=== PATIENT | female | born 1945 | race Caucasian/White ===

== ENCOUNTER 2018-12-07 15:49 | Inpatient (IN) | payer MEDICAID, OTHER ==
[~2018-12-07] VITALS: Ht 170.2 cm; Wt 103.4 kg
[~2018-12-07 15:49] MED LIST: ALLO100T21 PO; CARV3.12 PO; CYCL-405 PO; ENAL5TAB7 PO; FLUT1DSK2 IH; HYDR-3229 PO; LACT10SO11; MENT1OIN22 TP; NA P135N9 RC; NOVN SUBQ; ORE25 PO; PAX20 PO; PENT400T PO; SLIDE SUBQ; SYN.05 PO; [UNRECOGNIZED DRUG - CODE] PO
--- NOTE | 2018-12-07 15:49 | NUR ---
DONALD CAVAZOS, CURRENTLY AWAITING BED
[2018-12-07 15:56] VITALS: BP 113/75
--- NOTE | 2018-12-07 16:43 | NUR ---
BROUGHT IN BY EMS FROM A MOTEL PT HAD BEEN STAYING THERE WITH A [employer]ING [employer]PPLIES SALES REPRESENTATIVE WHICH >1 WK SURRY WAS CALLED OUT FOR WELLFARE CHECK AND FOUND PT BEDBOUND AND [employer] SALES REPRESENTATIVE PT SOILED IN BED ; DENIES INJURY---ADMITS UNABLE TO CARE FOR SELF
[2018-12-07 17:02] LABS: BASOPHILS # (AUTO) 0.1 K/uL (0.00-0.22); BASOPHILS % (AUTO) 0.4 % (0.0-2.0); EOSINOPHILS # (AUTO) 0.4 K/uL (0-0.4); EOSINOPHILS % (AUTO) 2.8 % (0.0-4.0); HEMOGLOBIN 13.3 g/dL (12.0-16.0); LYMPHOCYTES # (AUTO) 3.6 K/uL (2.5-16.5); LYMPHOCYTES % (AUTO) 23.4 % (20.5-51.1); MEAN CORPUSCULAR HEMOGLOBIN 29 pg (27-31); MEAN CORPUSCULAR HGB CONC 32 g/dL (33-37); MEAN CORPUSCULAR VOLUME 90.6 fL (80-94); MONOCYTES # (AUTO) 0.7 K/uL (0.8-1.0); MONOCYTES % (AUTO) 4.7 % (1.7-9.3); NEUTROPHILS # (AUTO) 10.5 K/uL (1.8-7.7); NEUTROPHILS % (AUTO) 68.7 % (42.2-75.2); PLATELET COUNT (AUTO) 389 K/uL (140-450); RED BLOOD CELL COUNT(AUTO) 4.52 MIL/uL (4.20-5.40); RED CELL DISTRIBUTION WIDTH 13.9 % (11.6-13.7); WHITE BLOOD COUNT (AUTO) 15.3 K/uL (4.8-10.8)
[2018-12-07 17:23] LABS: ALBUMIN 3.2 g/dL (3.4-5.0); ANION GAP 17.9 (8-16); ASPARTATE AMINOTRANSFERASE 15 U/L (15-37); CARBON DIOXIDE 21.3 mmol/L (21-32); CHLORIDE 109 mmol/L (98-107); CREATININE 2.5 mg/dL (0.6-1.3); GLUCOSE 199 mg/dL (74-106); POTASSIUM 5.2 mmol/L (3.5-5.1); SODIUM SERUM 143 mmol/L (136-145); TOTAL BILIRUBIN 0.3 mg/dL (0.0-1.0)
[2018-12-07 17:42] LABS: UREA NITROGEN, BLOOD 93 mg/dL (7-18)
[2018-12-07 18:06] LABS: APPEARANCE,URINE CLOUDY (CLEAR); BILIRUBIN,URINE 1+ (NEGATIVE); BLOOD, URINE 2+ (NEGATIVE); COLOR,URINE YELLOW (YELLOW); LEUKOCYTE ESTERASE ,URINE 2+ (NEGATIVE); NITRITE, URINE NEGATIVE (NEGATIVE); UGLUCOSE NEGATIVE (NEGATIVE)
[2018-12-07 18:30] LABS: RBC,URINE 3-10 (FEW) /HPF (0-5); WBC,URINE TOO MANY TO COUNT /HPF (0-5)
[2018-12-07 18:31] LABS: URINE AMORPHOUS URATE 1+ /HPF (None Seen)
[2018-12-07] MEDS ORDERED: NACL 0.9% 1,000 ML IV ONE (18:40)
--- NOTE | 2018-12-07 18:52 | NUR ---
CONTACT [phone]. CHILD NUMBER TO BE CONTACTED. PER FAMILY MEMBER.
[2018-12-07] MEDS ORDERED: cefTRIAXone 1,000 MG VIAL ONE (19:09)
--- NOTE | 2018-12-07 19:15 | NUR ---
REPORT GIVEN TO GABRIELE
--- NOTE | 2018-12-07 19:15 | NUR ---
PT LYING IN BED, VSS.
--- NOTE | 2018-12-07 21:00 | NUR ---
COMFORT MEASURES OFFERED. PT TOLERATED WELL.
[2018-12-07] MEDS ORDERED: ASPIRIN 81 MG TAB.CHEW PO ONE (21:30)
--- NOTE | 2018-12-07 21:45 | NUR ---
LIFTED PT UP IN BED, AND TURNED HER. SKIN INTACT. PT TOLERATED WELL.
[2018-12-07] MEDS ORDERED: NACL 0.9% 500 ML IV ONE (23:40)
[2018-12-08] VITALS (7 sets, daily range): BP systolic 104–145; BP diastolic 32–93
[2018-12-08] MEDS ORDERED: LACTULOSE 20 GM/30 ML UDC PO SCH (00:05)
[2018-12-08] MEDS ORDERED: ACETAMINOPHEN 325 MG TAB PO PRN (00:05)
[2018-12-08] MEDS ORDERED: INSULIN LISPRO SLIDING SCALE 100 UNITS/ML VIAL SUBQ PRN (00:05)
[2018-12-08] MEDS ORDERED: SODIUM POLYSTYRENE 15 GM/60 ML UDBTL PO ONE (00:05)
[2018-12-08] MEDS ORDERED: DEXTROSE 50% 50 ML SYR IVP PRN (00:05)
[2018-12-08] MEDS ORDERED: LORazepam 2 MG/ML VIAL IVP PRN (00:05)
--- NOTE | 2018-12-08 00:20 | NUR ---
CALLED NURSING WAX PATTERN REPAIRER REGARDING KAYEXALATE MEDICATION. ER MD MADE AWARE OF STATUS.
[2018-12-08] MEDS ORDERED: SODIUM POLYSTYRENE 15 GM/60 ML UDBTL ONE (00:41)
--- NOTE | 2018-12-08 00:45 | NUR ---
Pt report given to AGATHA LARA. Transfer of care at this time.VSS
--- NOTE | 2018-12-08 00:45 | NUR ---
Patient will be admitted to care of DR. BARROS. Admited to TELEMETRY. Will go to room 108A. Belongings list completed. Report to AGATHA LARA.
--- NOTE | 2018-12-08 01:00 | NUR ---
RECEIVED BEDSIDE REPORT FROM GABRIELE DENNIS RN. PT IS A&OX2. ON ROOM AIR. NO S/S OF DISTRESS NOTED. DENIES SOB OR PAIN. HAS IV ON LEFT HAND 22G SALINE LOCK AT THIS TIME. HAS SACRAL REDNESS IT IS BLANCHABLE. CALIXTO IN PLACE DRAINING CLEAR YELLOW URINE. WAS INSERTED IN ER 12/07/18 PER NURSE. OTHERWISE SKIN IS INTACT. ORIENTED PT TO ROOM AND STAFF. PLAN OF CARE DISCUSSED. FALL PROTOCOL IN PLACE. CALL LIGHT WITHIN REACH.
[2018-12-08] MEDS: NACL 0.9% 1,000 ML IV SCH ×3 (01:26→21:09)
--- NOTE | 2018-12-08 01:42 | NUR ---
PAGED DR BARROS. CRITICAL LAB TROPNIN 0.071. NO NEW ORDERS. WILL CONTINUE TO FOLLOW UP.
--- NOTE | 2018-12-08 02:50 | NUR ---
PT SLEEPING COMFORTABLY. NO S/S OF DISTRESS.
--- NOTE | 2018-12-08 04:30 | NUR ---
PTS HEART RATE INCREASED TO 134BPM. OTHERWISE VS ARE STABLE. PT HAVING DISCOMFORT ADMINISTERED MORPHINE PAIN. WILL CONTINUE TO MONITOR. CALL LIGHT WITHIN REACH.
[2018-12-08] MEDS: MORPHINE SULFATE 4 MG/ML SYR IVP PRN (04:49)
--- NOTE | 2018-12-08 05:30 | NUR ---
PT IS SLEEPING COMFORTABLY IN BED. NO S/S OF DISTRESS HEART RATE 106 WILL CONTINUE TO MONITOR.
[2018-12-08] MEDS: BLOOD GLUCOSE MONITORING 1 DEV DEV FS SCH ×4 (06:25→21:02)
--- NOTE | 2018-12-08 07:04 | NUR ---
KAYEXALATE WAS ADMINISTERED IN ER AT 0045 PER MARCO SUAZO. KAYEXALATE CHRISS ONE TIME KEEPS APPEARING IN THE EMAR TO ADMINISTER 0000. BUT HAS ONLY BEEN GIVEN IN THE ER.
--- NOTE | 2018-12-08 07:25 | NUR ---
ENDORSED TO DAY SHIFT RN. PT IS IN STABLE CONDITION.
--- NOTE | 2018-12-08 07:26 | NUR ---
RECEIVED BEDSIDE REPORT FROM LIFE INSURANCE AGENT NURSE. PATIENT IS AWAKE, ALERT AND ORIENTEDX4. NO SIGNS OF DISTRESS ON RA. HX CVA L SIDE WEAKNESS. BEDBOUND. FALL RISK PROTOCOL IN PLACE. BUTTOCKS HAS REDNESS. L FOOT HAS DTI AND SCAB. IV ON L HAND 22G INFUSING NS AT 100. CLEAN. DRY AND INTACT. PATIENT IS INCONTINENT. CALIXTO CATH IN PLACE. TELE MONITOR IN PLACE. BED IN LOW POSITION. CALL LIGHT WITHIN REACH. WILL CONTINUE TO MONITOR THE PATIENT.
--- NOTE | 2018-12-08 08:11 | NUR ---
PATIENT HAS BEEN SCREENED AND CATEGORIZED MODERATE NUTRITION RISK. PATIENT WILL BE SEEN WITHIN 3-5 DAYS OF ADMISSION. 12/10/18TOI BA RD
--- NOTE | 2018-12-08 08:24 | NUR ---
BELONGINGS SENT W HIEN, SECURITY. PATIENT HAS A LOT OF BELONGINGS. PATIENTS LABEL ON BAG OF BELONGINGS AND PATIENT IS AWARE OF THE BELONGINGS WITH SECURITY.
[2018-12-08] MEDS: INSULIN NPH HUMAN ISOPHANE 100 UNIT/ML VIAL SUBQ SCH ×2 (08:50→21:00)
[2018-12-08] MEDS: DOCUSATE SODIUM 250 MG GELCAP PO SCH ×2 (08:53→21:00)
[2018-12-08] MEDS: PARoxetine 20 MG TAB PO SCH (08:54)
[2018-12-08] MEDS: LEVOTHYROXINE 0.05 MG TAB PO SCH (08:54)
[2018-12-08] MEDS: CARVEDILOL 3.125 MG TAB PO SCH ×2 (08:55→21:00)
[2018-12-08] MEDS: PENTOXIFYLLINE 400 MG TABER PO SCH ×3 (08:55→17:20)
[2018-12-08] MEDS: hydrALAZINE 10 MG TAB PO SCH ×3 (08:56→17:20)
[2018-12-08] MEDS ORDERED: NON-FORMULARY ITEM (Fluticasone/Salmeterol* (Advair 250-50 Diskus*) 1 DSK) IH SCH (09:00)
--- NOTE | 2018-12-08 09:13 | NUR ---
ADMINISTERED MEDS ONE BY ONE. PATIENT TOLERATED WELL. WILL CONTINUE TO MONITOR
--- NOTE | 2018-12-08 09:21 | NUR ---
SON HUMBERTO ANDERS CALLED AND WANTED TO KNOW PATIENTS STATUS. HE WANTS TO KNOW MORE INFORMATION ON TYPES OF NURSING HOMES SHE CAN GO TO. GAVE HIS NUMBER [phone] TO SARITA PRINCIPAL ARCHITECT. SHE SAID SHE WILL GIVE THE INFORMATION TO XIOMARA. SON STATES HE WANTED HER TO GO BACK W HIM TO [place] BUT SHE WANTED TO BE W HER RED LEADER. HE SAID HE KNOWS HE CANT TAKE HER TO [place] RIGHT AWAY BUT WANTS TO KNOW MORE ABOUT DIFFERENT RESOURCES OR TEMPORARY PLACEMENTS
--- NOTE | 2018-12-08 10:30 | NUR ---
TOLD DR BARROS ABOUT PHARMACY REQUESTING ADVAIR TO BE CHANGED TO A DIFFERENT MED BECAUSE WE DONT HAVE ADVAIR. IF PATIENT CAN HAVE A DIFFERENT NEBULIZER LIKE ALBUTEROL. ALSO TOLD HIM PATIENT MAY NEED SS REQUEST FOR PLACEMENT WHEN DISCHARGED REQUESTED BY SON HUMBERTO. DR BARROS SAID WE WILL SEE WHAT WE CAN DO.
--- NOTE | 2018-12-08 10:46 | NUR ---
PATIENT IS SLEEPING. NO SIGNS OF DISTRESS. WILL CONTINUE TO MONITOR THE PATIENT.
--- NOTE | 2018-12-08 10:54 | NUR ---
ADMINISTERED NEW BAG OF NS AT 100. CLEAN, DRY AND INTACT. NO SIGNS OF DISTRESS. WILL CONTINUE TO MONITOR
[2018-12-08 10:55] LABS: ANION GAP 15.4 (8-16); CARBON DIOXIDE 20.7 mmol/L (21-32); CHLORIDE 113 mmol/L (98-107); CREATININE 2.2 mg/dL (0.6-1.3); GLUCOSE 168 mg/dL (74-106); POTASSIUM 4.1 mmol/L (3.5-5.1); SODIUM SERUM 145 mmol/L (136-145)
[2018-12-08 10:57] LABS: UREA NITROGEN, BLOOD 80 mg/dL (7-18)
--- NOTE | 2018-12-08 11:26 | NUR ---
patient turned to l side. no signs of distress. will continue to monitor the patient
--- NOTE | 2018-12-08 12:29 | NUR ---
PATIENT REFUSED LUNCH. SHE SAID SHE JUST WANTS TO SLEEP
[2018-12-08] MEDS ORDERED: HYDRAGUARD CREAM TP SCH (13:38)
--- NOTE | 2018-12-08 14:00 | NUR ---
PATIENT IS SLEEPING. NO SIGNS OF DISTRESS. WILL CONTINUE TO MONITOR THE PATIENT.
--- NOTE | 2018-12-08 14:49 | NUR ---
ALEXIS CELIS SPOKE WITH PATIENT AT BEDSIDE WHO SAID THAT SHE LIVED IN A MOTEL WITH HER CAREGIVER AFTAB RAJAN WHO HAD POA BUT HAD RECENTLY . SHE SAID THAT SHE CANNOT REMEMBER THE NAME OR THE ADDRESS OF THE MOTEL SHE STAYED IN. THE PATIENT STATED THAT HER CAREGIVER MANUAL USED TO ASSIST HER WITH HER ADL AND PROVIDE TRANSPORTATION FOR HER BRINGING HER TO HER APPOINTMENTS. SHE ALSO SAID THAT SINCE SHE NO LONGER HAS A CAREGIVER, SHE WANTS TO GO TO A NURSING FACILITY WHEN DISCHARGED. I INFORMED THE PATIENT THAT THE HOSPITAL RECEIVED A CALL FROM HER SON HUMBERTO ANDERS FROM [facility]# [phone] AND I ASKED HER FOR PERMISSION TO TALK TO HER SON AND SHE AGREED THAT I COULD CALL HER SON. I ASKED THE PATIENT'S SON HUMBERTO IF HE HAD POA AND HE SAID NO. HUMBERTO ALSO STATED THAT THE PATIENT HAS NO FAMILY IN [place]. I ASKED HUMBERTO IF HE KNOWS IF HIS MOTHER HAS SECONDARY MEDI-SERGE AND HE SAID HE DOESN'T KNOW. HUMBERTO SAID THAT HE TRIED TO CONVINCE THE PATIENT BEFORE TO STAY WITH HIM IN [place] BUT THE PATIENT DID NOT AGREE. PATIENT'S SON HUMBERTO IS AGREEABLE FOR HIS MOTHER TO GO TO A NURSING FACILITY WHEN DISCHARGED.
--- NOTE | 2018-12-08 16:40 | NUR ---
PATIENT TURNED TO L SIDE. WILL CONTINUE TO MONITOR THE PATIENT
--- NOTE | 2018-12-08 17:03 | NUR ---
PATIENT SITTING IN BED. NO SIGNS OF DISTRESS. WILL CONTINUE TO MONITOR THE PATIENT.,
[2018-12-08] MEDS: ONDANSETRON 4 MG/2 ML VIAL IVP PRN ×2 (17:26→23:15)
--- NOTE | 2018-12-08 17:40 | NUR ---
ADMINISTERED MEDS. PATIENT VOMITED. CRUSHED THE REST OF MEDS AND GAVE W PUDDING. PATIENT TOLERATED WELL. GAVE HER ZOFRAN. WILL CONTINUE TO MONITOR THE PATIENT.
--- NOTE | 2018-12-08 19:05 | NUR ---
GAVE BEDSIDE REPORT TO AIR CONDITIONING MANAGER NURSE. PATIENT ENDORSED IN STABLE CONDITION
--- NOTE | 2018-12-08 19:06 | NUR ---
RECEIVED BEDSIDE REPORT FROM MICHAEL RN. PT IS A&OX3. ON ROOM AIR. NO S/S OF DISTRESS NOTED. DENIES SOB OR PAIN. HAS IV ON LEFT HAND 22G IVF INFUSING PER ORDERS. HAS REDNESS ON BUTTOCKS IT IS BLANCHABLE. L FOOT DTI WITH SCAB. CALIXTO IN PLACE DRAINING CLEAR YELLOW URINE. ORIENTED PT TO ROOM AND STAFF. PLAN OF CARE DISCUSSED. FALL PROTOCOL IN PLACE. CALL LIGHT WITHIN REACH.
--- NOTE | 2018-12-08 21:10 | NUR ---
VITAL SIGNS ARE WITHIN NORMAL LIMITS. PER DAY SHIFT RN PT HAD TWO LOOSE STOOLS TODAY I HELD THE COLACE. B/P 114/64 AND HR 83 HELD COREG. CALL LIGHT WITHIN REACH. WILL CONTINUE TO MONITOR.
--- NOTE | 2018-12-08 23:15 | NUR ---
ADMINISTERED ZOFRAN FOR NAUSEA. WILL CONTINUE TO MONITOR. CALL LIGHT WITHIN REACH.
[2018-12-09] VITALS (7 sets, daily range): BP systolic 112–143; BP diastolic 58–73
[2018-12-09 01:03] LABS: CREATINE KINASE MB 6.2 ng/mL (0-3.6)
[2018-12-09] MEDS: MORPHINE SULFATE 4 MG/ML SYR IVP PRN ×2 (01:56→12:47)
--- NOTE | 2018-12-09 03:04 | NUR ---
PT SLEEPING COMFORTABLY IN BED. NO S/S OF DISTRESS. CALL LIGHT WITHIN REACH.
--- NOTE | 2018-12-09 04:30 | NUR ---
VITAL SIGNS ARE WITHIN NORMAL LIMITS. ALL NEEDS MET AT THIS TIME. WILL CONTINUE TO MONITOR.
[2018-12-09] MEDS: BLOOD GLUCOSE MONITORING 1 DEV DEV FS SCH ×4 (06:08→20:49)
[2018-12-09] MEDS: NACL 0.9% 1,000 ML IV SCH (06:15)
--- NOTE | 2018-12-09 07:30 | NUR ---
ENDORSED TO DAY SHIFT RN. PT IS IN STABLE CONDITION.
--- NOTE | 2018-12-09 07:35 | NUR ---
RECEIVED PT FROM MANAGER VIDEO NURSEAGATHA, PT IS AWAKE AND LYING ON THE BED WITH SIDE RAILS UP AND CALL LIGHT WITHIN REACH, FALL PRECAUTION ENFORCED, PT HAS AN IV LINE ON THE LEFT HAND G. 22 WITH NS AT 100ML/HR INFUSING. PT HAS A CALIXTO CATHETER IN PLACE. NO SIGN OF DISTRESS NOTED AND WILL CONTINUE TO MONITOR PT.
[2018-12-09 07:47] LABS: ALBUMIN 2.4 g/dL (3.4-5.0); ANION GAP 13.3 (8-16); ASPARTATE AMINOTRANSFERASE 21 U/L (15-37); CHLORIDE 118 mmol/L (98-107); CREATININE 1.9 mg/dL (0.6-1.3); GLUCOSE 78 mg/dL (74-106); POTASSIUM 3.3 mmol/L (3.5-5.1); SODIUM SERUM 150 mmol/L (136-145); TOTAL BILIRUBIN 0.2 mg/dL (0.0-1.0); UREA NITROGEN, BLOOD 55 mg/dL (7-18)
--- NOTE | 2018-12-09 08:00 | NUR ---
PT IS AWAKE AND VITAL SIGNS TAKEN AND WITHIN LIMIT, PILLOW WAS PLACED UNDER THE LEGS. NO C/O PAIN. WILL MONITOR PT.
[2018-12-09 08:41] LABS: BASOPHILS % (AUTO) 0.5 % (0.0-2.0); EOSINOPHILS # (AUTO) 0.1 K/uL (0-0.4); EOSINOPHILS % (AUTO) 1.3 % (0.0-4.0); HEMATOCRIT 30.6 % (36-48); HEMOGLOBIN 10.1 g/dL (12.0-16.0); LYMPHOCYTES # (AUTO) 3.2 K/uL (2.5-16.5); LYMPHOCYTES % (AUTO) 34.4 % (20.5-51.1); MEAN CORPUSCULAR HEMOGLOBIN 30 pg (27-31); MEAN CORPUSCULAR HGB CONC 33 g/dL (33-37); MEAN CORPUSCULAR VOLUME 90.6 fL (80-94); MONOCYTES # (AUTO) 0.5 K/uL (0.8-1.0); MONOCYTES % (AUTO) 4.9 % (1.7-9.3); NEUTROPHILS # (AUTO) 5.5 K/uL (1.8-7.7); NEUTROPHILS % (AUTO) 58.9 % (42.2-75.2); PLATELET COUNT (AUTO) 283 K/uL (140-450); RED BLOOD CELL COUNT(AUTO) 3.37 MIL/uL (4.20-5.40); RED CELL DISTRIBUTION WIDTH 13.9 % (11.6-13.7); WHITE BLOOD COUNT (AUTO) 9.4 K/uL (4.8-10.8)
[2018-12-09] MEDS ORDERED: ASPIRIN 81 MG TAB.CHEW PO SCH (09:00)
[2018-12-09] MEDS: PARoxetine 20 MG TAB PO SCH (10:29)
[2018-12-09] MEDS: FUROSEMIDE 20 MG/2 ML VIAL IVP SCH ×2 (10:31→20:52)
[2018-12-09] MEDS: LEVOTHYROXINE 0.05 MG TAB PO SCH (10:31)
[2018-12-09] MEDS: hydrALAZINE 10 MG TAB PO SCH ×3 (10:31→17:34)
[2018-12-09] MEDS: DOCUSATE SODIUM 250 MG GELCAP PO SCH ×2 (10:32→21:00)
[2018-12-09] MEDS: CARVEDILOL 3.125 MG TAB PO SCH ×2 (10:34→20:52)
[2018-12-09] MEDS: PENTOXIFYLLINE 400 MG TABER PO SCH ×3 (10:56→17:33)
[2018-12-09] MEDS: INSULIN NPH HUMAN ISOPHANE 100 UNIT/ML VIAL SUBQ SCH ×2 (11:04→20:54)
--- NOTE | 2018-12-09 11:48 | NUR ---
CM NOTE RECEIVED A CALL FROM THE PATIENT'S DAUGHTER IN [place] GIOVANNI ANDERS # [phone] REQUESTING TO SPEAK WITH THE ATTENDING PHYSICIAN AND ENVIRONMENTAL SERVICES LEAD. CHARGE NURSE SUN AND KAYLEY PEREZ
--- NOTE | 2018-12-09 12:30 | NUR ---
DR. BARROS CAME TO PT'S ROOM AND ASSESSED PT. HYDRALAZINE WAS HELD BECAUSE BP IS 112/67 AND MD WAS INFORMED. WILL MONITOR PT.
--- NOTE | 2018-12-09 12:35 | NUR ---
INFORMED DR. BARROS THAT THE PT'S DAUGHTER WANTS TO SPEAK WITH HIM AND IS REQUESTING FOR A CALL BACK, HANDED THE TELEPHONE NO OF THE DAUGHTER TO DR. BARROS AND MD SAID THAT HE WILL CALL THE DAUGHTER.
[2018-12-09] MEDS: ONDANSETRON 4 MG/2 ML VIAL IVP PRN ×2 (12:38→21:08)
[2018-12-09] MEDS ORDERED: ROC2I IV (12:47)
[2018-12-09] MEDS ORDERED: NACL 0.45% 1,000 ML IV SCH (12:55)
[2018-12-09] MEDS ORDERED: POTASSIUM CHLORIDE 20% 40 MEQ/15 ML UDC PO SCH (13:30)
--- NOTE | 2018-12-09 14:14 | NUR ---
POTASSIUM CHLORIDE LIQUID WAS GIVEN TO PT.
--- NOTE | 2018-12-09 14:54 | NUR ---
ALEXIS NOTE FAXED ORDER TO DC TO SNF TO [facility] [phone]. PER [facility] ALEXIS METZGER PH# [phone] EXT [phone] SHE WILL LOOK FOR AN ACCEPTING SNF AND ARRANGE TRANSPORTATION. RECEIVED CALL FROM [facility] ALEXIS METZGER WHO STATED THAT PATIENT IS GOING TO [facility] (SNF) AT [address] [id number] PH# [phone] JOHNS. PER ALEXIS METZGER SHE WILL CALL THE NURSING STATION ONCE SHE HAS THE TRANSPORTATION SET UP. RAGHAV LARA, PATIENT'S NURSE, AWARE. PER RAGHAV LARA, SHE WILL INFORM THE PATIENT'S PERSON TO NOTIFY, PATIENT'S SON HUMBERTO.
--- NOTE | 2018-12-09 17:15 | NUR ---
PT WAS REPOSITIONED AND CLEANED AND MADE COMFORTABLE ON THE BED, SACRAL ASSESSMENT WAS DONE AND BARRIER CREAM WAS APPLIED AND REINFORCED BY [employer] DRESSING. NO SIGN OF DISTRESS NOTED AND WILL MONITOR PT.
--- NOTE | 2018-12-09 17:20 | NUR ---
SACRAL ERYTHEMA WAS ASSESSED AND WELL SCAB ON THE LEFT FOOT, PICTURES WERE TAKEN AND ATTACHED TO CHART.
--- NOTE | 2018-12-09 17:34 | NUR ---
PT IS AWAKE AND SEATED ON THE BED, VITAL SIGN TAKEN AND IS WITHIN NORMAL LIMIT, ORAL MEDICATIONS WERE GIVEN AND PT TOLERATED IT WITH THE APPLE SAUCE. NO SIGN OF DISTRESS NOTED AND WILL CONTINUE TO MONITOR PT.
--- NOTE | 2018-12-09 18:30 | NUR ---
CALLED THE PT'S SON, BI AND DAUGHTER, GIOVANNI AND WERE INFORMED OF THE PT'S TRANSFER TO [facility]. THE CHILDREN WERE GIVEN ALL THE INFORMATIONS INCLUDING THE ADDRESS AND CONTACT NO OF [address] WHERE PT WILL BE TRANSFERRED AND VERBALIZED UNDERSTANDING.
--- NOTE | 2018-12-09 18:54 | NUR ---
CALLED [facility] AND GAVE REPORT TO MARCO AGUILERA AND REPORTED ALL THE DISCHARGE INFORMATIONS FOR THE PT AND MARCO AGUILERA VERBALIZED UNDERSTANDING. INFORMED MARCO AGUILERA THAT PT WILL BE PLACE IN 141 UNDER THE SERVICE OF DR. JOHNS.
--- NOTE | 2018-12-09 19:10 | NUR ---
ENDORSED PT TO CELL COVERER NURSE ANTHONY AND EMRE FOR CONTINUITY OF CARE AND THE TRANSFER PROCESS TO [facility]. PT IS STABLE AT THIS TIME.
--- NOTE | 2018-12-09 19:10 | NUR ---
RECEIVED ENDORSEMENT FROM KESHIA AVILEZ; PATIENT IS A&Ox2, ABLE TO MAKE NEEDS KNOWN. NO SOB OR DISTRESS NOTED. IV ON L HAND, 22 GAUGE. CALIXTO CATHETER IN PLACE. PATIENT IS BEDBOUND. SACRAL REDNESS NOTED, TOWARDS LEFT BUTTOCK. PLAN OF CARE WAS DISCUSSED, FOR DISCHARGE TODAY. BED IN THE LOWEST POSITION, CALL LIGHT WITHIN REACH. INITIAL ASSESSMENT DONE, ALL SAFETY PRECAUTIONS MET. WILL CONTINUE TO MONITOR.
--- NOTE | 2018-12-09 20:05 | NUR ---
PATIENT WAS GIVEN DUE MEDS, NO S/SX OF DISTRESS NOTED. TOLERATED WELL. WILL CONTINUE TO MONITOR.
[2018-12-09] MEDS ORDERED: ATORVASTATIN 20 MG TAB PO SCH (21:00)
--- NOTE | 2018-12-09 23:45 | NUR ---
PATIENT SIGNED DISCHARGE PAPERWORK, MADE AWARE OF WHERE SHE IS GOING; TO [facility]. PATIENTS BELONGINGS WERE RETURNED AND WITH PATIENT. [facility] ARRIVED, PATIENT TRANSPORTED OUT OF UNIT VIA GURNEY, ACCOMPANIED BY TWO AMBULANCE PERSONNEL. PATIENTS IV INTACT. CALIXTO IN PLACE. WRIST BAND REMOVED. TELE MONITOR REMOVED. PATIENT LEFT UNIT IN STABLE CONDITION.
== END 2018-12-09 23:45 | DRG 871 ==
LOC: MED 15:49 → MTU 12-08 00:03
PROVIDERS: ADMIT Hospitalist; ATTEND Hospitalist
DX: A41.9 Sepsis, unspecified organism (principal); I21.A1 Myocardial infarction type 2; I50.33 Acute on chronic diastolic (congestive) heart failure; N39.0 Urinary tract infection, site not specified; I69.354 Hemiplegia and hemiparesis following cerebral infarction affecting left non-dominant side; N17.9 Acute kidney failure, unspecified; E87.0 Hyperosmolality and hypernatremia; I42.9 Cardiomyopathy, unspecified; I13.0 Hypertensive heart and chronic kidney disease with heart failure and stage 1 through stage 4 chronic kidney disease, or unspecified chronic kidney disease; E11.51 Type 2 diabetes mellitus with diabetic peripheral angiopathy without gangrene; E87.5 Hyperkalemia; J44.9 Chronic obstructive pulmonary disease, unspecified; E11.22 Type 2 diabetes mellitus with diabetic chronic kidney disease; E86.0 Dehydration; E03.9 Hypothyroidism, unspecified; F32.9 Major depressive disorder, single episode, unspecified; F41.9 Anxiety disorder, unspecified; M10.9 Gout, unspecified; I25.10 Atherosclerotic heart disease of native coronary artery without angina pectoris; B96.1 Klebsiella pneumoniae [K. pneumoniae] as the cause of diseases classified elsewhere; N18.9 Chronic kidney disease, unspecified; I25.2 Old myocardial infarction; Z99.3 Dependence on wheelchair; Z88.2 Allergy status to sulfonamides; Z88.8 Allergy status to other drugs, medicaments and biological substances; Z79.4 Long term (current) use of insulin; Z79.899 Other long term (current) drug therapy
CPT/HCPCS: 36415; 71045; 80048; 80053; 81001; 82550; 82553; 82948; 83605; 83735; 83880; 84484; 85025; 87040; 87081; 87086; 87186; 93005; 96361; 96365; 99285; J0696; J1644; J1815; J1940; J2270; J2405; J7030; J7060